=== PATIENT | male | born 1990 | race Caucasian/White ===

== ENCOUNTER 2017-12-21 04:23 | Emergency (ER) | payer SELFPAY ==
[~2017-12-21] VITALS: Ht 180.3 cm; Wt 77.1 kg
[2017-12-21 04:31] VITALS: Ht 180.3 cm; Wt 77.1 kg
[2017-12-21 04:49] VITALS: BP 126/71
== END 2017-12-21 07:31 | disposition home or self-care (01) ==
LOC: ED 04:23
DX: S43.402A Unspecified sprain of left shoulder joint, initial encounter (principal); S63.501A Unspecified sprain of right wrist, initial encounter; F12.90 Cannabis use, unspecified, uncomplicated; Z88.6 Allergy status to analgesic agent; V86.69XA Passenger of other special all-terrain or other off-road motor vehicle injured in nontraffic accident, initial encounter; Y93.I9 Activity, other involving external motion; Y99.8 Other external cause status; Y92.89 Other specified places as the place of occurrence of the external cause